=== PATIENT | male | born 1965 | race African-American/Black ===

== ENCOUNTER → 2020-05-03 | Outpatient (CLI) | payer OTHER ==
[2020-05-05 16:10] LABS: COTININE Negative ng/mL (Cutoff=300)
== END | disposition home or self-care (01) ==
LOC: LAB SHORT 15:08 → LAB 15:08 → LAB FUT 05-03 11:35 → EDSTATUS 05-03 11:35
PROVIDERS: Orthopaedic Surgery
DX: Z01.812 Encounter for preprocedural laboratory examination (principal); S83.242D Other tear of medial meniscus, current injury, left knee, subsequent encounter; Z87.891 Personal history of nicotine dependence

== ENCOUNTER 2020-06-02 08:13 | Day surgery (SDC) | payer OTHER ==
[~2020-06-02] VITALS: Ht 188 cm; Wt 122.8 kg
[~2020-06-02 08:13] MED LIST: AMLO10 PO; HYDCHL25 PO; IBUP600 PO; LISI20 PO
--- NOTE | 2020-06-02 10:55 | NUR ---
06/02/20 1055 MEHNAZ BENITEZ PT TO STEP DOWN VIA BED, SBA TO RECLINER. LEG ELEVATED ON PILLOW W/ICE PACK BEHIND KNEE. VSS ON ROOM AIR. MEDICATED WITH IV FENTANYL NEEDED PER MD ORDER.
== END 2020-06-02 11:27 | disposition home or self-care (01) ==
LOC: ORSCSDS 08:13
PROVIDERS: Orthopaedic Surgery
PROC: 0SBD4ZZ Excision of Left Knee Joint, Percutaneous Endoscopic Approach (ICD-10-PCS; principal; 2020-06-02 09:45)
DX: S83.282A Other tear of lateral meniscus, current injury, left knee, initial encounter (principal); M94.262 Chondromalacia, left knee; I10 Essential (primary) hypertension; Z79.899 Other long term (current) drug therapy; Z85.46 Personal history of malignant neoplasm of prostate; E66.9 Obesity, unspecified; Z68.34 Body mass index [BMI] 34.0-34.9, adult
CPT/HCPCS: A9270; J0690; J1100; J1885; J2370; J2405; J2704; J3010; J7120

== ENCOUNTER 2020-11-06 17:15 | Inpatient (IN) | payer OTHER ==
[~2020-11-06] VITALS: Ht 188 cm; Wt 129.3 kg
[2020-11-06] MEDS ORDERED: CLOP75 PO (17:44)
[2020-11-06] MEDS ORDERED: THERA-D2000 UNIT PO (19:08)
--- NOTE | 2020-11-07 04:43 | NUR ---
SHIFT SUMMARY A/OX4, IND TO BATHROOM. L. SIDED FACIAL DROOP NOTED, PT STATES ONGOING FOR APPROX. LAST 5 DAYS. SLIGHTLY SLURRED SPEECH, DENIES TROUBLE SWALLOWING. EQUAL BILATERAL HAND HOTEL ASSISTANT MANAGER. DENIES PAIN OR SOB. TELE RUNNING SR IN THE 80S. VSS, NO ACUTE CHANGES AT THIS TIME. BED IN LOWEST POSITION WITH CALL LIGHT IN REACH. WILL CONTINUE TO MONITOR AND REPORT TO ONCOMING RN.
[2020-11-07 05:12] LABS: BASOPHILS ABSOLUTE AUTO 0.03 K/mm3 (0.00-0.23); BASOPHILS PERCENT AUTO 0 % (0-2); EOSINOPHILS ABSOLUTE AUTO 0.28 K/mm3 (0.00-0.68); EOSINOPHILS PERCENT AUTO 4 % (0-6); Hematocrit 39.3 % (37.0-53.0); Hemoglobin 13.3 g/dL (13.5-17.5); IMMATURE GRAN ABSOLUTE AUTO 0.01 K/mm3 (0.00-0.10); IMMATURE GRAN PERCENT AUTO 0 % (0-1); LYMPHOCYTES ABSOLUTE AUTO 2.48 K/mm3 (0.84-5.20); LYMPHOCYTES PERCENT AUTO 36 % (21-46); MONOCYTES ABSOLUTE AUTO 0.57 K/mm3 (0.16-1.47); MONOCYTES PERCENT AUTO 8 % (4-13); Mean Corpuscular HGB 30.5 pg (26.0-34.0); Mean Corpuscular HGB Conc 33.8 g/dL (31.5-36.5); Mean Corpuscular Volume 90 fL (80-100); Mean Platelet Volume 10.7 fL (9.1-12.4); NEUTROPHILS ABSOLUTE AUTO 3.48 K/mm3 (1.96-9.15); NEUTROPHILS PERCENT AUTO 51 % (41-73); Platelet Count 235 K/mm3 (150-400); RDW Coefficient Variation 12.2 % (11.7-14.2); RDW Standard Deviation 40.5 fL (35.1-46.3); Red Blood Cell Count 4.36 M/mm3 (4.30-5.90); White Blood Cell Count 6.85 K/mm3 (4.00-11.30)
[2020-11-07 05:30] LABS: Anion Gap 5 mmol/L (6-16); Blood Urea Nitrogen 15 mg/dL (8-24); Bun/Creatinine Ratio 13.4 (12.0-20.0); CO2, Blood 28 mmol/L (21-32); Calcium, Blood 9.1 mg/dL (8.5-10.1); Chloride, Blood 105 mmol/L (98-108); Creatinine, Blood 1.12 mg/dL (0.60-1.20); Glomerular Filtration Rate >60 (60-); Glucose, Blood 94 mg/dL (70-99); Potassium, Blood 3.6 mmol/L (3.5-5.5); Sodium, Blood 138 mmol/L (136-145)
--- NOTE | 2020-11-07 09:42 | NUR ---
PER HOLD HCTZ AND LISINOPRIL DUE TO VS
[2020-11-07] MEDS ORDERED: ACET325 PO (17:02)
[2020-11-07] MEDS ORDERED: ASPI81CH PO (17:02)
[2020-11-07] MEDS ORDERED: ATOR80 PO (17:03)
[2020-11-07] MEDS ORDERED: CLOP75 PO (17:04)
--- NOTE | 2020-11-07 17:50 | NUR ---
REVIEW D'C W/PATIENT AND S.O. AWARE HAVE MEDS TO ASSISTANT CHIEF OF POLICE. REVIEW ALL MEDS AND WHY TAKING. AWARE NEEDS TO F/U V.A. AND GET REFERRAL TO NEUROLOGIST. ANSWER ALL QUESTIONS. VERBALIZES UNDERSTANDING. WALKED DOWN W/CAR JOCKEY IN ATTENDENCE. STEADY GAIT.
== END 2020-11-07 17:40 | disposition home or self-care (01) | DRG 66 ==
LOC: ER 17:15 → MEDS 17:16
PROVIDERS: Nurse Practitioner Acute Care; ADMIT Internal Medicine
DX: I63.9 Cerebral infarction, unspecified (principal); I10 Essential (primary) hypertension; E78.5 Hyperlipidemia, unspecified; E55.9 Vitamin D deficiency, unspecified; Z87.891 Personal history of nicotine dependence; R29.810 Facial weakness; Z68.36 Body mass index [BMI] 36.0-36.9, adult; Z88.6 Allergy status to analgesic agent; Z85.46 Personal history of malignant neoplasm of prostate; E66.01 Morbid (severe) obesity due to excess calories; Z79.899 Other long term (current) drug therapy; F12.10 Cannabis abuse, uncomplicated
CPT/HCPCS: 36415; 70498; 80048; 85025; 92523; 93306; 97161; 97530; 99285; A9270; G0378; Q9967

== ENCOUNTER 2021-04-11 09:52 | Day surgery (SDC) | payer OTHER ==
[~2021-04-11] VITALS: Ht 188 cm; Wt 136.1 kg
[~2021-04-11 09:52] MED LIST changes: +ACET325 PO; +ASPI81CH PO; +ATOR80 PO; +CLOP75 PO; +THERA-D2000 UNIT PO
--- NOTE | 2021-04-11 14:45 | NUR ---
DRESSED FOR DISCHARGE. IV REMOVED INTACT.2X2, COBAN AND MANUAL PRESSURE APPLIED. TR BAND REMOVED. CLOTH DOT, AND IMMOBILIZER APPLIED. DISCHARGE INSTRUCTIONS GIVEN WITH VERBAL AND WRITTEN UNDERSTANDING.
--- NOTE | 2021-04-11 15:00 | NUR ---
DISCHARGED HOME VIA WHEELCHAIR. DRIVING.
== END 2021-04-11 15:00 | disposition home or self-care (01) ==
LOC: MHTC 09:52
DX: I47.2 Ventricular tachycardia (principal); R55 Syncope and collapse; I25.10 Atherosclerotic heart disease of native coronary artery without angina pectoris; I10 Essential (primary) hypertension; R73.03 Prediabetes; E78.5 Hyperlipidemia, unspecified; I34.0 Nonrheumatic mitral (valve) insufficiency; E66.9 Obesity, unspecified; Z68.38 Body mass index [BMI] 38.0-38.9, adult; Z86.73 Personal history of transient ischemic attack (TIA), and cerebral infarction without residual deficits; Z87.891 Personal history of nicotine dependence; Z79.02 Long term (current) use of antithrombotics/antiplatelets; Z88.8 Allergy status to other drugs, medicaments and biological substances
CPT/HCPCS: 76937; 93454; 99152; C1769; C1887; C1894; J1644; J2250; J3010; J7030; J7050; Q9967